=== PATIENT | female | born 1985 | race American Indian/Alaskan Native ===

== ENCOUNTER 2017-07-30 04:13 | Emergency (ER) | payer OTHER ==
--- NOTE | 2017-07-30 06:37 | Emergency Department Report ---
HPI - General Chief Complaint: Altered Mental Status Time Seen by Provider: 07/30/17 06:07 - HPI HPI: This is a 31 year-old female presents to the emergency department via EMS from home after a family member found her to be unresponsive. However the patient is currently awake and alert and says that she just drank too much. They attended a [employer], after midnight, and the patient apparently drank about 12 shots. At the time she was found to be hypotensive at 84/58 but this has resolved. She did not receive anything other than some IV fluid in route. She denies any past medical history. She does not have a primary care physician. Currently she just says that she feels tired. ED Past Medical Hx - Past Medical History Previous Medical History?: No - Surgical History Past Surgical History?: No - Social History Smoking Status: Heavy Tobacco Smoker Substance Use Type: Alcohol ED Review of Systems ROS: Stated complaint: ETOH Other details as noted in HPI Comment: All other systems reviewed and negative Constitutional: denies: chills, fever Eyes: denies: eye pain, eye discharge, vision change ENT: denies: ear pain, throat pain Respiratory: denies: cough, shortness of breath, wheezing Cardiovascular: denies: chest pain, palpitations Gastrointestinal: denies: abdominal pain, nausea, diarrhea Genitourinary: denies: urgency, dysuria, discharge Musculoskeletal: denies: back pain, joint swelling, arthralgia Skin: denies: rash, lesions Neurological: denies: headache, weakness, paresthesias Physical Exam - Physical Exam Vital Signs: Vital Signs 07/30/17 07/30/17 07/30/17 04:49 04:51 04:55 Temperature Pulse Rate 91 H 86 87 Respiratory 18 17 Rate Blood Pressure 108/70 O2 Sat by Pulse 100 100 Oximetry 07/30/17 07/30/17 07/30/17 05:00 05:05 05:11 Temperature Pulse Rate 81 84 80 Respiratory 17 11 L 21 Rate Blood Pressure 116/62 116/62 116/62 O2 Sat by Pulse 100 99 100 Oximetry 07/30/17 07/30/17 05:15 05:20 Temperature 98.3 F Pulse Rate 82 Respiratory 20 Rate Blood Pressure 105/59 O2 Sat by Pulse 100 Oximetry Physical Exam: GENERAL: The patient is well-developed well-nourished. HENT: Normocephalic. Atraumatic. Patient has moist mucous membranes. EYES: Extraocular motions are intact. Pupils equal reactive to light bilaterally. No nystagmus. NECK: Supple. Trachea is midline. CHEST/LUNGS: Clear to auscultation. There is no respiratory distress noted. HEART/CARDIOVASCULAR: Regular. There is no tachycardia. There is no murmur. ABDOMEN: Abdomen is soft, nontender. Patient has normal bowel sounds. There is no abdominal distention. SKIN: Skin is warm and dry. NEURO: Patient is sleepy but is easily arousable. When she is awake she is alert and oriented. The patient is cooperative. The patient has no focal neurologic deficits. The patient has normal speech. Cranial nerves II through XII grossly intact. MUSCULOSKELETAL: There is no tenderness or deformity. There is no limitation range of motion. There is no evidence of acute injury. ED Course Vital Signs 07/30/17 07/30/17 07/30/17 04:49 04:51 04:55 Temperature Pulse Rate 91 H 86 87 Respiratory 18 17 Rate Blood Pressure 108/70 O2 Sat by Pulse 100 100 Oximetry 07/30/17 07/30/17 07/30/17 05:00 05:05 05:11 Temperature Pulse Rate 81 84 80 Respiratory 17 11 L 21 Rate Blood Pressure 116/62 116/62 116/62 O2 Sat by Pulse 100 99 100 Oximetry 07/30/17 07/30/17 05:15 05:20 Temperature 98.3 F Pulse Rate 82 Respiratory 20 Rate Blood Pressure 105/59 O2 Sat by Pulse 100 Oximetry ED Medical Decision Making - Lab Data Result diagrams: 07/30/17 07:23 07/30/17 07:23 - EKG Data -: EKG Interpreted by Hi EKG shows normal: sinus rhythm, axis, intervals, QRS complexes, ST-T waves ( early repolarization) Rate: normal - EKG Data When compared to previous EKG there are: previous EKG unavailable Interpretation: normal EKG - Medical Decision Making The patient apparently had an unresponsive episode last night but she thinks it is due to the quantity of alcohol she drank. She is sleepy but is easily arousable and once awake she is alert and oriented. There are no focal, motor or sensory deficits in her cranial nerves are intact. So far her labs are unremarkable. The blood alcohol level has not come back yet. However the patient is anxious to leave and has decided to leave AGAINST MEDICAL ADVICE. Despite her alcohol consumption, family is bedside and is willing to take responsibility for her and take her home. Since she is awake without any deficits or did not feel CT imaging of the head was necessary at this time. Vital signs are stable as far. - Differential Diagnosis alcohol intoxication, vasovagal, orthostatic hypertension, TIA Critical Care Time: No Critical care attestation.: If time is entered above; I have spent that time in minutes in the direct care of this critically ill patient, excluding procedure time. ED Disposition Clinical Impression: Unresponsive episode Alcohol intoxication Qualifiers: Complication of substance-induced condition: with unspecified complication Qualified Code(s): F10.929 - Alcohol use, unspecified with intoxication, unspecified Disposition: DC-07 LEFT AGAINST MED ADVICE Is pt being admited?: No Condition: Stable Referrals: DEVANTE ESCOBEDO MD [Primary Care Provider] - 3-5 Days Time of Disposition: 08:45
[2017-07-30 06:55] VITALS: BP 103/59
[2017-07-30 07:59] LABS: Alanine Aminotransferase 33 units/L (7-56); Albumin 3.8 g/dL (3.9-5); BUN/Creatinine Ratio 23; Blood Urea Nitrogen 16 mg/dL (7-17); Calcium 8.6 mg/dL (8.4-10.2); Hemolysis Index 16
[2017-07-30 08:00] LABS: Basophils # (Auto) 0.1 K/mm3 (0.0-0.1); Basophils % (Auto) 0.9 % (0.0-1.8); Eosinophils % (Auto) 0.4 % (0.0-4.3); Hematocrit 37.6 % (30.3-42.9); Hemoglobin 12.8 gm/dl (10.1-14.3); Lymphocytes # (Auto) 2.4 K/mm3 (1.2-5.4); Lymphocytes % (Auto) 38.9 % (13.4-35.0); Mean Corpuscular HGB Conc 34 % (30-34); Mean Corpuscular Hemoglobin 30 pg (28-32); Mean Corpuscular Volume 87 fl (79-97); Monocytes # (Auto) 0.3 K/mm3 (0.0-0.8); Platelet Count 230 K/mm3 (140-440); Red Blood Count 4.31 M/mm3 (3.65-5.03); Red Cell Distribution Width 14.8 % (13.2-15.2)
== END 2017-07-30 10:14 | disposition left against medical advice (07) ==
LOC: ED 04:13
DX: F10.129 Alcohol abuse with intoxication, unspecified (principal); Z72.0 Tobacco use
CPT/HCPCS: 36415; 80053; 84703; 85025; 93005; 93010; 99284; G0480; 80320